=== PATIENT | female | born 1955 | race Caucasian/White ===

== ENCOUNTER 2017-11-04 15:29 | Observation (INO) | payer MEDICARE, OTHER ==
[~2017-11-04] VITALS: Ht 157.5 cm; Wt 53.7 kg
[~2017-11-04 15:29] MED LIST: CEFA2SOL IV; ERGO2000 PEG; ESCI20TA PEG; HYDR-3288 PO; HYOS0.1231 PO; LEVO100T5 PO; LORA-474 PEG; OMEP40CA2 PEG; OXYC-392 PEG; TRAZ50TA12 PO; XARE20TA PEG
[2017-11-04 15:40] VITALS: BP 123/71; PULSE 108; RESP 26; TEMP 98.1; O2SAT 96
--- NOTE | 2017-11-04 16:02 | PD ---
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) Immunizations Current: Yes Migraines: No Radiation Therapy: Yes Seizures: No Past Surgical History Abdominal Surgery: No Body Medical Devices: trach Cardiac Surgery: No Cholecystectomy: Yes Ear Surgery: No Endocrine Surgery: Yes (thyroidectomy 2015) Eye Surgery: No Genitourinary Surgery: No Gynecologic Surgery: No Hysterectomy: Yes Oral Surgery: No Thoracic Surgery: No Tonsillectomy: Yes Other Surgery: Yes (TRACH, VOICE BOX) Social History Alcohol Use: No Tobacco Use: No Substance Use: No Allergies-Medications (Allergen,Severity, Reaction): Coded Allergies: Penicillins (Verified Allergy, Severe, 07/03/17) pentazocine (Verified Allergy, Severe, 07/03/17) Reported Meds & Prescriptions Reported Meds & Active Scripts Active Hyosyne Liq Drops (Hyoscyamine Sulfate) 0.125 Mg/Ml Soln 0.125 Mg PO Q4H PRN 30 Days Trazodone (Trazodone HCl) 50 Mg Tab 50 Mg PO HS PRN 30 Days Escitalopram (Escitalopram Oxalate) 20 Mg Tab 20 Mg PEG HS 30 Days Xarelto (Rivaroxaban) 20 Mg Tab 20 Mg PEG DAILY 30 Days [place] (Hydrocodone-Acetaminophen) 7.5-325 mg Tab 1 Tab PO Q6H PRN Reported Levothyroxine (Levothyroxine Sodium) 100 Mcg Tab 100 Mcg PO DAILY Cefazolin Inj (Cefazolin Sodium/Dextrose) 2 Gm/50 Ml Bagp 2 Gm IV Q8H Ativan (Lorazepam) 1 Mg Tab 1 Mg PEG Q8H PRN Oxycodone (Oxycodone HCl) 5 Mg Tab 5 Mg PEG BID PRN Vitamin D2 (Ergocalciferol) 2,000 Unit Tab 5,000 Units PEG DAILY Omeprazole 40 Mg Cap 40 Mg PEG BID Data Data Orders Orders Complete Blood Count With Diff (11/04/17 15:47) Comprehensive Metabolic Panel (11/04/17 15:47) Thyroid Stimulating Hormone (11/04/17 15:47) Psych Screen (11/04/17 15:47) Drug Screen, Random Urine (11/04/17 15:47) Alcohol (Ethanol) (11/04/17 15:47) Salicylates (Aspirin) (11/04/17 15:47) Tylenol (Acetaminophen) (11/04/17 15:47) Urinalysis - C+S If Indicated (11/04/17 15:47) Erin Patiño November 04, 2017 16:02
[2017-11-04 16:57] LABS: AUTOMATED NEUTROPHIL # 9.2 TH/MM3 (1.8-7.7); BASOPHIL % 0.3 % (0.0-2.0); EOSINOPHIL # 0.1 TH/MM3 (0-0.4); EOSINOPHIL % 1.1 % (0.0-4.0); HEMATOCRIT 35.5 % (35.0-46.0); HEMOGLOBIN 11.9 GM/DL (11.6-15.3); LYMPH % 12.5 % (9.0-44.0); LYMPHOCYTE # 1.5 TH/MM3 (1.0-4.8); MEAN CELL VOLUME 80.9 FL (80.0-100.0); MEAN CORPUSCULAR HEMOGLOBIN 27.2 PG (27.0-34.0); MEAN CORPUSCULAR HGB CONC 33.6 % (32.0-36.0); MEAN PLATELET VOLUME 9.5 FL (7.0-11.0); MONO % 9.2 % (0.0-8.0); MONOCYTE # 1.1 TH/MM3 (0-0.9); NEUT % 76.9 % (16.0-70.0); PLATELET COUNT 309 TH/MM3 (150-450); RED BLOOD COUNT 4.38 MIL/MM3 (4.00-5.30); RED CELL DISTRIBUTION WIDTH 15.3 % (11.6-17.2)
[2017-11-04 17:00] LABS: BACTERIA, URINE RARE /hpf; BILIRUBIN, URINE NEG (NEG); BLOOD, URINE NEG (NEG); GLUCOSE,URINE NEG (NEG); KETONE, URINE NEG (NEG); NITRITE,URINE NEG (NEG); PH, URINE 6.5 (5.0-8.5); URINE COLOR COLORLESS (YELLW/STRAW); URINE LEUKOCYTE ESTERASE NEG (NEG)
[2017-11-04] MEDS ORDERED: ABIL10TA8 PEG (17:09)
[2017-11-04] MEDS ORDERED: LEVO88TA2 PEG (17:09)
[2017-11-04] MEDS ORDERED: CHOL5000 PEG (17:09)
[2017-11-04] MEDS ORDERED: HYDR50CA PEG (17:09)
[2017-11-04] MEDS ORDERED: LIDO1SOL8 TOPICAL (17:09)
[2017-11-04] MEDS ORDERED: PROZ20CA11 PEG (17:09)
[2017-11-04] MEDS ORDERED: LORA0.5T PEG (17:09)
[2017-11-04 17:27] LABS: ACETAMINOPHEN LESS THAN 2.0 MCG/ML (10.0-30.0); ALBUMIN 3.6 GM/DL (3.4-5.0); ALKALINE PHOSPHATASE 75 U/L (45-117); ALT (GPT) 35 U/L (10-53); AST (GOT) 15 U/L (15-37); BICARBONATE 17.7 MEQ/L (21.0-32.0); BLOOD UREA NITROGEN 20 MG/DL (7-18); CALCIUM 8.8 MG/DL (8.5-10.1); CHLORIDE 107 MEQ/L (98-107); CREATININE 1.19 MG/DL (0.50-1.00); GLOMERULAR FILTRATION RATE 46 ML/MIN (>89); GLUCOSE,RANDOM 87 MG/DL (74-106); SODIUM (NA) 142 MEQ/L (136-145); TOTAL BILIRUBIN ADULT 0.9 MG/DL (0.2-1.0); TOTAL PROTEIN 7.4 GM/DL (6.4-8.2)
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
[2017-11-04] MEDS ORDERED: LORazepam 2 MG/ML VIAL IM ONE (17:45)
[2017-11-04] MEDS ORDERED: SODIUM CHLOR 0.9% 1000 ML INJ 1,000 ML IV SCH (18:00)
[2017-11-04] MEDS ORDERED: HALOPERIDOL LACTATE 5 MG/ML AMP IM ONE (18:00)
[2017-11-04] MEDS ORDERED: SODIUM CHLORIDE 0.9% FLUSH 10 ML FLUSH IV FLUSH PRN (19:45)
[2017-11-04] MEDS ORDERED: MAGNESIUM HYDROXIDE SUSP 30 ML CUP PO PRN (19:45)
[2017-11-04] MEDS ORDERED: BISACODYL 10 MG SUPP RECTAL PRN (19:45)
[2017-11-04] MEDS ORDERED: SENNOSIDES 8.6 MG TAB PO PRN (19:45)
[2017-11-04] MEDS ORDERED: NALOXONE HCL 0.4 MG/ML AMP IV PUSH PRN (19:45)
[2017-11-04] MEDS ORDERED: LACTULOSE SYRUP 20 GM/30 ML CUP PO PRN (19:45)
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
[2017-11-04] MEDS ORDERED: ONDANSETRON ODT 4 MG TAB PO PRN (20:00)
[2017-11-04] MEDS ORDERED: ACETAMINOPHEN 650 MG/20.3 ML UDC G-TUBE PRN (20:00)
[2017-11-04] MEDS: DOCUSATE SODIUM 50 MG/SENNA 8.6 MG TAB PO SCH (21:00)
[2017-11-04 21:55] VITALS: BP 119/61; PULSE 73; RESP 20; TEMP 98.9; O2SAT 99
[2017-11-05] VITALS: BP 106/63; PULSE 104; RESP 18; TEMP 98.8; O2SAT 97
[2017-11-05] MEDS: LORazepam 2 MG/ML VIAL IV PUSH PRN ×3 (01:03→21:10)
[2017-11-05] MEDS: NS + KCL 20 MEQ INJ 1,000 ML IV SCH ×2 (01:06→15:53)
[2017-11-05] MEDS: SODIUM CHLORIDE 0.9% FLUSH 10 ML FLUSH IV FLUSH SCH ×3 (01:10→21:00)
[2017-11-05] MEDS ORDERED: LORazepam 2 MG/ML VIAL IV PUSH ONE (01:45)
[2017-11-05 04:00] VITALS: BP 100/59; PULSE 82; RESP 20; TEMP 98.1; O2SAT 100
[2017-11-05] MEDS: ACETAMINOPHEN/HYDROcodone 325 MG/7.5 MG TAB PO PRN ×3 (04:47→21:15)
[2017-11-05 07:26] LABS: AUTOMATED NEUTROPHIL # 6.5 TH/MM3 (1.8-7.7); BASOPHIL % 0.3 % (0.0-2.0); EOSINOPHIL # 0.1 TH/MM3 (0-0.4); EOSINOPHIL % 1.6 % (0.0-4.0); HEMATOCRIT 32.1 % (35.0-46.0); HEMOGLOBIN 10.8 GM/DL (11.6-15.3); LYMPH % 14.1 % (9.0-44.0); LYMPHOCYTE # 1.2 TH/MM3 (1.0-4.8); MEAN CELL VOLUME 81.7 FL (80.0-100.0); MEAN CORPUSCULAR HEMOGLOBIN 27.5 PG (27.0-34.0); MEAN CORPUSCULAR HGB CONC 33.6 % (32.0-36.0); MEAN PLATELET VOLUME 9.4 FL (7.0-11.0); MONO % 10.3 % (0.0-8.0); MONOCYTE # 0.9 TH/MM3 (0-0.9); NEUT % 73.7 % (16.0-70.0); PLATELET COUNT 265 TH/MM3 (150-450); RED BLOOD COUNT 3.93 MIL/MM3 (4.00-5.30); RED CELL DISTRIBUTION WIDTH 14.8 % (11.6-17.2); WHITE BLOOD COUNT 8.8 TH/MM3 (4.0-11.0)
[2017-11-05] MEDS: DOCUSATE SODIUM 50 MG/SENNA 8.6 MG TAB PO SCH ×2 (08:31→21:00)
[2017-11-05 08:37] LABS: BICARBONATE 22.2 MEQ/L (21.0-32.0); CREATININE 1.31 MG/DL (0.50-1.00)
[2017-11-05 12:11] VITALS: BP 109/62; PULSE 91; RESP 16; TEMP 98.1; O2SAT 97
[2017-11-05] MEDS ORDERED: HALOPERIDOL LACTATE 5 MG/ML AMP IM PRN (12:30)
[2017-11-05] MEDS ORDERED: traZODone HCL 50 MG TAB PO PRN (12:45)
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
[2017-11-05 16:00] VITALS: BP_SYST 103; BP_DIAS 57; BP_DIAS 72; PULSE 62; RESP 18; RESP 20; TEMP 98.4; O2SAT 95; O2SAT 96
[2017-11-05] MEDS ORDERED: HALO5P IM (16:44)
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
[2017-11-05] MEDS: [UNRECOGNIZED DRUG - REMARK] PEG SCH (17:34)
[2017-11-05] MEDS: CALCIUM CARBONATE 1.25 GM (CA 500 MG) TAB PEG SCH (17:34)
[2017-11-05] MEDS: POTASSIUM CHLORIDE 20 MEQ PWD PACKET PEG SCH (17:34)
[2017-11-05 20:00] VITALS: BP 109/66; PULSE 59; RESP 18; TEMP 97.9; O2SAT 96
[2017-11-05 21:58] VITALS: O2SAT 94
[2017-11-06] VITALS: BP 118/69; PULSE 72; RESP 22; TEMP 97.9; O2SAT 97
[2017-11-06] MEDS: LORazepam 2 MG/ML VIAL IV PUSH PRN ×2 (03:44→09:51)
[2017-11-06 04:00] VITALS: BP 93/63; PULSE 54; RESP 18; TEMP 97.6; O2SAT 95
[2017-11-06] MEDS: NS + KCL 20 MEQ INJ 1,000 ML IV SCH ×2 (05:55→14:39)
[2017-11-06] MEDS: [UNRECOGNIZED DRUG - REMARK] PEG SCH ×3 (05:55→12:00)
[2017-11-06] MEDS: ACETAMINOPHEN/HYDROcodone 325 MG/7.5 MG TAB PO PRN ×2 (06:46→14:00)
[2017-11-06 07:25] LABS: BICARBONATE 24.5 MEQ/L (21.0-32.0); CALCIUM 8.1 MG/DL (8.5-10.1); CREATININE 0.9 MG/DL (0.50-1.00)
[2017-11-06 08:00] VITALS: BP 93/55; PULSE 63; RESP 16; TEMP 97.8; O2SAT 93
[2017-11-06] MEDS: QUEtiapine FUMARATE 25 MG TAB PO SCH ×2 (08:54→12:42)
[2017-11-06] MEDS: DOCUSATE SODIUM 50 MG/SENNA 8.6 MG TAB PO SCH (08:54)
[2017-11-06] MEDS: CALCIUM CARBONATE 1.25 GM (CA 500 MG) TAB PEG SCH (08:54)
[2017-11-06] MEDS: SODIUM CHLORIDE 0.9% FLUSH 10 ML FLUSH IV FLUSH SCH (08:55)
[2017-11-06] MEDS: POTASSIUM CHLORIDE 20 MEQ PWD PACKET PEG SCH (08:55)
[2017-11-06] MEDS ORDERED: ARIPiprazole 5 MG TAB PEG SCH (09:00)
[2017-11-06] MEDS ORDERED: FLUoxetine HCL 20 MG CAP PO SCH (09:00)
[2017-11-06 12:00] VITALS: BP 95/60; PULSE 65; RESP 16; TEMP 97.9; O2SAT 93
[2017-11-06] MEDS ORDERED: LORazepam 1 MG TAB PEG ONE (14:45)
--- NOTE | 2017-11-06 17:50 | HHI.PR ---
Subjective Remarks Patient is in bed off restraints, giving staff difficulty with her behavior. Objective Vitals Vital Signs Date Time Temp Pulse Resp B/P (MAP) Pulse Ox O2 Delivery O2 Flow Rate FiO2 11/06/17 12:00 97.9 65 16 95/60 (72) 93 11/06/17 08:00 97.8 63 16 93/55 (68) 93 11/06/17 07:31 Room Air 11/06/17 04:00 97.6 54 18 93/63 (73) 95 11/06/17 00:00 97.9 72 22 118/69 (85) 97 11/05/17 21:58 94 21 11/05/17 20:00 97.9 59 18 109/66 (80) 96 11/05/17 20:00 Room Air I/O 11/05/17 11/05/17 11/05/17 11/06/17 11/06/17 11/06/17 06:59 14:59 22:59 06:59 14:59 22:59 Intake Total 0 ml 1000 ml Output Total 1200 ml Balance 0 ml -200 ml Intake Oral 0 ml 0 ml IV Total 1000 ml Output Urine Total 1200 ml # Voids 3 # Bowel Movements 0 Result Diagram: 11/05/17 0638 11/06/17 0636 Objective Remarks GENERAL: 62-year-old female in poor health secondary to throat cancer, tracheostomy SKIN: Warm and dry. HEAD: Normocephalic. EYES: No scleral icterus. No injection or drainage. NECK: Supple, trachea midline. No JVD or lymphadenopathy. CARDIOVASCULAR: Regular rate and rhythm without murmurs, gallops, or rubs. RESPIRATORY: Breath sounds equal bilaterally. No accessory muscle use. Tracheostomy in place GASTROINTESTINAL: Abdomen soft, non-tender, nondistended. PEG tube in place EXTREMITIES: No cyanosis, or edema. NEUROLOGICAL: Awake, alert, and oriented x 3. Non-focal. Procedures none A/P Problem List: (1) Suicidal ideation ICD Code: R45.851 - Suicidal ideations (2) Adjustment disorder with mixed disturbance of emotions and conduct ICD Code: F43.25 - Adjustment disorder with mixed disturbance of emotions and conduct (3) Major depressive disorder, recurrent ICD Code: F33.9 - Major depressive disorder, recurrent, unspecified (4) Medical clearance for psychiatric admission ICD Code: Z00.8 - Encounter for other general examination Status: Acute Assessment and Plan Suicidal ideation Patient was discharged yesterday and transferred to [facility] She is awaiting a bed for placement h/o throat cancer, tracheostomy, PEG tube Patient is an overall poor health, but medically stable, not qualifying for hospitalization from a medical standpoint Recommended that medicine follow her on [facility] for management of electrolyte imbalance and dehydration risk Discharge planning Patient awaiting placement into [facility] Naseem Olson MD Nov 06, 2017 17:50
--- NOTE | 2017-11-07 08:33 | EKG ---
Date Performed: 11/05/2017 Time Performed: 20:01:56 PTAGE: 62 years EKG: Sinus rhythm Poor R-wave progression across the precordium which may be a normal variant Low voltage in precordia l leads NO PREVIOUS TRACING DOCTOR: Cal Guzman Interpretating Date/Time 11/07/2017 08:31:10
== END 2017-11-06 16:12 ==
LOC: NEPD 15:29 → NEDA 17:56 → N04A 21:55
PROVIDERS: ADMIT Family Medicine; ATTEND Family Medicine
DX: F43.25 Adjustment disorder with mixed disturbance of emotions and conduct (principal); F33.9 Major depressive disorder, recurrent, unspecified; F41.9 Anxiety disorder, unspecified; R45.1 Restlessness and agitation; K21.9 Gastro-esophageal reflux disease without esophagitis; E03.9 Hypothyroidism, unspecified; E87.6 Hypokalemia; Z93.1 Gastrostomy status; Z85.12 Personal history of malignant neoplasm of trachea; Z78.1 Physical restraint status; Z79.01 Long term (current) use of anticoagulants; Z93.0 Tracheostomy status; Z79.899 Other long term (current) drug therapy
CPT/HCPCS: 80048; 80053; 80307; 81001; 84443; 85025; 93005; 96365; 96366; 96372; 96375; 96376; 99285; G0378; J2060; J3480

== ENCOUNTER 2017-11-06 14:10 | Inpatient (IN) | payer MEDICARE, OTHER ==
[~2017-11-06 14:10] MED LIST changes: +ABIL10TA8 PEG; -CEFA2SOL IV; +CHOL5000 PEG; -ERGO2000 PEG; -ESCI20TA PEG; +HALO5P IM; -HYDR-3288 PO; +HYDR50CA PEG; -LEVO100T5 PO; +LEVO88TA2 PEG; +LIDO1SOL8 TOPICAL; -LORA-474 PEG; +LORA0.5T PEG; -OXYC-392 PEG; +PROZ20CA11 PEG; -XARE20TA PEG
[2017-11-06 18:12] VITALS: BP 140/73; PULSE 74; RESP 17; TEMP 98.6; O2SAT 100
[2017-11-06] MEDS ORDERED: LIDOCAINE VISCOUS 2% SOLN 15 ML UDC SWISH-SPIT PRN (18:45)
[2017-11-06] MEDS: LANSOPRAZOLE SOLUTAB 30 MG TAB PEG SCH (20:46)
[2017-11-06] MEDS: HYOSCYAMINE SOLN 0.125 MG/ML 15 ML BTL PO PRN (20:46)
[2017-11-06] MEDS: LORazepam 0.5 MG TAB PEG PRN (20:47)
[2017-11-06] MEDS ORDERED: NON-FORMULARY DRUG (Omeprazole 40 MG) PEG SCH (21:00)
[2017-11-07] MEDS: LEVOTHYROXINE SODIUM 88 MCG TAB PEG SCH (06:00)
[2017-11-07] MEDS: LANSOPRAZOLE SOLUTAB 30 MG TAB PEG SCH ×2 (09:58→19:27)
[2017-11-07] MEDS: CHOLECALCIFEROL (VIT D3) 5000 UNIT CAP PEG SCH (09:58)
[2017-11-07] MEDS: LORazepam 0.5 MG TAB PEG PRN ×4 (09:58→22:11)
[2017-11-07] MEDS: HYOSCYAMINE SOLN 0.125 MG/ML 15 ML BTL PO PRN ×4 (09:58→19:27)
[2017-11-07] MEDS ORDERED: traZODone HCL 50 MG TAB PO PRN (10:00)
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
[2017-11-07] MEDS: HALOPERIDOL LACTATE 5 MG/ML AMP IM PRN ×2 (12:35→20:39)
[2017-11-07] MEDS: ARIPiprazole 5 MG TAB PEG SCH (13:53)
[2017-11-07] MEDS: FLUoxetine HCL 20 MG CAP PO SCH (13:53)
--- NOTE | 2017-11-07 15:43 | PD.CONS ---
HPI Service [facility] [address] Hospitalists Consult Requested By Dr. Le Reason for Consult Medical management Primary Care Physician Unknown Diagnoses: (1) Hypokalemia (2) History of throat cancer (3) Acute kidney injury (4) Suicidal ideation (5) Adjustment disorder with mixed disturbance of emotions and conduct (6) Major depressive disorder, recurrent History of Present Illness The patient is a 62 year old female admitted to the medical/psych unit. Hospitalist consultation was requested for medical management. She had been admitted to the medical service for management of dehydration and electrolyte abnormalities prior to transfer to [facility]/psych. She has no complaints at this time. Denies chest pain, dyspnea, nausea, vomiting. Per nursing, she was quite agitated this morning, but has done well after receiving her psych medications. Review of Systems Constitutional: DENIES: Fever, Chills, Night Sweats Eyes: DENIES: Blurred vision, Vision loss Ears, nose, mouth, throat: DENIES: Hearing loss Respiratory: DENIES: Cough, Wheezing, Sputum production, Shortness of breath Cardiovascular: DENIES: Chest pain, Palpitations, Dyspnea on Exertion, Lower Extremity Edema Gastrointestinal: DENIES: Abdominal pain, Constipation, Diarrhea, Nausea, Vomiting Genitourinary: DENIES: Urinary frequency, Urinary incontinence, Urgency, Hematuria, Dysuria, Nocturia Musculoskeletal: DENIES: Joint pain, Muscle aches Integumentary: DENIES: Pruritus, Rash Hematologic/lymphatic: DENIES: Bruising Neurologic: DENIES: Headache Past Family Social History Allergies: Coded Allergies: Penicillins (Verified Allergy, Severe, 11/04/17) pentazocine (Verified Allergy, Severe, 11/04/17) Past Medical History History of throat cancer Adjustment disorder Hypothyroidism GERD Past Surgical History Tracheostomy PEG tube Reported Medications See list Family History Denies significant family medical history. Social History Patient denies alcohol, tobacco, and illicit drug use. Physical Exam Vital Signs Vital Signs Date Time Temp Pulse Resp B/P (MAP) Pulse Ox O2 Delivery O2 Flow Rate FiO2 11/06/17 18:12 98.6 74 17 140/73 (95) 100 Physical Exam GENERAL: Chronically ill-appearing female in no acute distress. HEENT: Tracheostomy. CARDIOVASCULAR: Regular rate and rhythm without murmurs, gallops, or rubs. RESPIRATORY: Clear to auscultation. No wheezes, rales, or rhonchi. Breathing is non-labored. GASTROINTESTINAL: Abdomen soft, non-tender, nondistended. PEG tube in place. EXTREMITIES: No lower extremity edema. No calf tenderness. PSYCH: Alert and oriented x 3. Assessment and Plan Assessment and Plan 1. Suicidal ideation, depression: Admitted under Joy Act. Management per psychiatry. 2. Hypokalemia: Improved. Recheck labs. 3. Acute kidney injury: Secondary to dehydration. Improved with IV fluids. Recheck BUN and creatinine. 4. History of throat cancer: Patient has tracheostomy and PEG tube. Continue bolus tube feedings. Appreciate dietary recommendations. 5. DVT prophylaxis: Ambulation. 6. Hypothyroidism: Continue Synthroid. 7. GI prophylaxis: Prevacid. Ziggy Stahl MD Nov 07, 2017 15:43
[2017-11-07 17:38] VITALS: BP 119/57; PULSE 57; RESP 16; TEMP 98.9; O2SAT 98
[2017-11-07] MEDS: ACETAMINOPHEN/HYDROcodone 325 MG/5 MG TAB PEG PRN (19:27)
[2017-11-07 22:02] LABS: AUTOMATED NEUTROPHIL # 4.5 TH/MM3 (1.8-7.7); BASOPHIL % 0.7 % (0.0-2.0); EOSINOPHIL # 0.1 TH/MM3 (0-0.4); HEMATOCRIT 30.7 % (35.0-46.0); HEMOGLOBIN 10.3 GM/DL (11.6-15.3); LYMPH % 17.4 % (9.0-44.0); LYMPHOCYTE # 1.1 TH/MM3 (1.0-4.8); MEAN CELL VOLUME 81.2 FL (80.0-100.0); MEAN CORPUSCULAR HEMOGLOBIN 27.3 PG (27.0-34.0); MEAN CORPUSCULAR HGB CONC 33.7 % (32.0-36.0); MEAN PLATELET VOLUME 9.1 FL (7.0-11.0); MONO % 9.9 % (0.0-8.0); MONOCYTE # 0.6 TH/MM3 (0-0.9); PLATELET COUNT 204 TH/MM3 (150-450); RED BLOOD COUNT 3.78 MIL/MM3 (4.00-5.30); WHITE BLOOD COUNT 6.4 TH/MM3 (4.0-11.0)
[2017-11-07 22:26] LABS: BICARBONATE 21.3 MEQ/L (21.0-32.0); CALCIUM 8.8 MG/DL (8.5-10.1); CREATININE 1.19 MG/DL (0.50-1.00)
[2017-11-08] MEDS: ACETAMINOPHEN/HYDROcodone 325 MG/5 MG TAB PEG PRN ×3 (03:46→17:59)
[2017-11-08] MEDS: LORazepam 0.5 MG TAB PEG PRN ×3 (03:46→17:59)
[2017-11-08] MEDS: LEVOTHYROXINE SODIUM 88 MCG TAB PEG SCH (05:32)
[2017-11-08 06:09] VITALS: BP 91/55; PULSE 98; RESP 17; TEMP 97.4; O2SAT 95
[2017-11-08] MEDS ORDERED: POTASSIUM CHLORIDE 25 MEQ EFFERVESCENT TAB PEG ONE (07:30)
[2017-11-08 10:15] LABS: AUTOMATED NEUTROPHIL # 2.7 TH/MM3 (1.8-7.7); BASOPHIL % 0.9 % (0.0-2.0); EOSINOPHIL # 0.2 TH/MM3 (0-0.4); EOSINOPHIL % 3.5 % (0.0-4.0); HEMATOCRIT 29.8 % (35.0-46.0); LYMPH % 18.9 % (9.0-44.0); LYMPHOCYTE # 0.8 TH/MM3 (1.0-4.8); MEAN CELL VOLUME 82.2 FL (80.0-100.0); MEAN CORPUSCULAR HEMOGLOBIN 27.6 PG (27.0-34.0); MEAN CORPUSCULAR HGB CONC 33.6 % (32.0-36.0); MONO % 13.5 % (0.0-8.0); MONOCYTE # 0.6 TH/MM3 (0-0.9); NEUT % 63.2 % (16.0-70.0); PLATELET COUNT 193 TH/MM3 (150-450); RED BLOOD COUNT 3.62 MIL/MM3 (4.00-5.30); RED CELL DISTRIBUTION WIDTH 15.1 % (11.6-17.2); WHITE BLOOD COUNT 4.3 TH/MM3 (4.0-11.0)
--- NOTE | 2017-11-08 10:18 | PD.TTN ---
Patient Problems 1. Discharge planning 2. Medication compliance 3. Knowledge deficit 4. Lack of coping skills Progress Toward Goals Provider Present: Dr. Lloyd Justice Provider Input: new patient Psych Therapist Input: pedro; new patient Group Spec/RT/OT/SMALL Present: ANDRÉS Cason Spec/RT/OT/SMALL Input: new patient; pt has reported that she was in hospital for several days on medical floor, pt reports she has been attending groups Documentation Scribe: cooper sepulveda ms, otr Cooper Sepulveda Nov 08, 2017 10:18
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
[2017-11-08] MEDS: ARIPiprazole 5 MG TAB PEG SCH (11:01)
[2017-11-08] MEDS: LANSOPRAZOLE SOLUTAB 30 MG TAB PEG SCH ×2 (11:02→21:00)
[2017-11-08] MEDS: FLUoxetine HCL 20 MG CAP PO SCH (11:02)
[2017-11-08] MEDS: CHOLECALCIFEROL (VIT D3) 5000 UNIT CAP PEG SCH (11:02)
[2017-11-08 11:04] LABS: BICARBONATE 21.8 MEQ/L (21.0-32.0); CALCIUM 8.9 MG/DL (8.5-10.1); CREATININE 1.1 MG/DL (0.50-1.00)
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
--- NOTE | 2017-11-08 17:40 | HHI.PR ---
Subjective Remarks Follow-up for dehydration, electrolyte disturbances. Patient is seen resting in bed. She has no medical complaints. Denies any fever/chills, headache, lightheadedness, chest pain, palpitations, shortness of breath, abdominal pain, nausea/vomiting, or diarrhea. States she wants to go home. Discussed with RN, no acute concerns. Objective Vitals Vital Signs Date Time Temp Pulse Resp B/P (MAP) Pulse Ox O2 Delivery O2 Flow Rate FiO2 11/08/17 06:09 97.4 98 17 91/55 (67) 95 11/08/17 04:46 20 11/07/17 17:38 98.9 57 16 119/57 (77) 98 I/O 11/07/17 11/07/17 11/07/17 11/08/17 11/08/17 11/08/17 07:00 15:00 23:00 07:00 15:00 23:00 Intake Total 480 ml Balance 480 ml Tube Feeding 480 ml # Voids 2 1 # Bowel Movements 1 Result Diagram: 11/08/1793211/[id number]/17932 Objective Remarks GENERAL: Well-nourished, well-developed female patient in [facility]. SKIN: Warm and dry. No rash. HEENT: Normocephalic. Atraumatic. Pupils equal and round. Mucous membranes pink and moist. NECK: Supple. Tracheostomy. CARDIOVASCULAR: Regular rate and rhythm. No murmur appreciated. RESPIRATORY: No accessory muscle use. Clear to auscultation. Breath sounds equal bilaterally. GASTROINTESTINAL: Abdomen soft, non-tender, nondistended. Normoactive bowel sounds x4. PEG tube in place. MUSCULOSKELETAL: No obvious deformities. Extremities without clubbing, cyanosis , or edema. NEUROLOGICAL: Awake and alert. No obvious cranial nerve deficits. Moving all extremities spontaneously. Medications and IVs Current Medications Medications (Trade) Dose Ordered Sig/Edmond Route Start Time Stop Time Status Last Admin (Vitamin D3) 5,000 units DAILY PEG 11/07/17 09:00 11/08/17 11:02 (Vistaril) 150 mg HS PEG 11/06/17 21:00 11/07/17 19:27 (Levsin Liq) 0.125 mg Q4H PRN PO 11/06/17 18:45 11/07/17 19:27 (Synthroid) 88 mcg DAILY@0600 PEG 11/07/17 06:00 11/08/17 05:32 (Xylocaine 2% Viscous) 5 ml QID PRN SWISH-SPIT 11/06/17 18:45 (Ativan) 0.5 mg 5 TIMES A DAY PRN PEG 11/06/17 18:45 11/08/17 11:28 (Prevacid Odt) 30 mg BID PEG 11/06/17 21:00 11/08/17 11:02 (Abilify) 5 mg DAILY PEG 11/07/17 10:30 Future hold 11/08/17 11:01 (PROzac) 40 mg DAILY PO 11/07/17 10:30 Future hold 11/08/17 11:02 (Haldol Inj) 2 mg Q8H PRN IM 11/07/17 10:00 Future hold 11/07/17 20:39 (Desyrel) 50 mg HS PRN PO 11/07/17 10:00 Future hold ([place] 5-325 Mg) 1 tab Q6H PRN PEG 11/07/17 18:30 11/08/17 11:28 (KCl Powder) 20 meq DAILY PEG 11/09/17 09:00 A/P Problem List: (1) Hypokalemia ICD Code: E87.6 - Hypokalemia (2) History of throat cancer ICD Code: Z85.819 - Personal history of malignant neoplasm of unspecified site of lip, oral cavity, and pharynx (3) Acute kidney injury ICD Code: N17.9 - Acute kidney failure, unspecified (4) Suicidal ideation ICD Code: R45.851 - Suicidal ideations (5) Adjustment disorder with mixed disturbance of emotions and conduct ICD Code: F43.25 - Adjustment disorder with mixed disturbance of emotions and conduct (6) Major depressive disorder, recurrent ICD Code: F33.9 - Major depressive disorder, recurrent, unspecified Assessment and Plan 8-year-old female with history of throat cancer with tracheostomy/PEG, adjustment disorder, hypothyroidism, GERD, admitted to med psych for depression and suicidal ideations. Hospitalist consulted for management of dehydration and electrolyte abnormalities. Depression, suicidal ideation: Acute. Admitted under Joy act. -Continue management per psychiatry -Continue on Prozac, Abilify JEFF: Creatinine 1.19, previously 0.6 in June 2017. Suspect secondary to dehydration. -Continue hydration via PEG -Repeat BMP shows some improvement, creatinine 1.1 -Avoid nephrotoxins -Continue to monitor Hypokalemia: Potassium 3.1 -Given p.o. KCl replacement -Repeat labs show improvement, K 3.8 History of throat cancer: Has tracheostomy and PEG tube -Continue tube feedings -Consulted dietitian, appreciate recommendations Hypothyroidism: chronic -Continue synthroid GERD: chronic -Continue Prevacid DVT Prophylaxis: ambulation Nanda Yanez PA-C Nov 08, 2017 5:40 pm
[2017-11-08 18:00] VITALS: BP 96/53; PULSE 64; RESP 17; TEMP 97.8; O2SAT 94
[2017-11-09 06:00] VITALS: BP 98/50; PULSE 51; RESP 15; TEMP 97.4; O2SAT 93
[2017-11-09] MEDS: LEVOTHYROXINE SODIUM 88 MCG TAB PEG SCH (06:00)
[2017-11-09 07:51] LABS: BICARBONATE 23.9 MEQ/L (21.0-32.0); CREATININE 1.04 MG/DL (0.50-1.00)
--- NOTE | 2017-11-09 09:26 | HHI.PR ---
Subjective Remarks Follow up on patient with dehydration, electrolyte imbalance. Patient seen and examined. Patient denies any new complaints. She denies any fever or chills. + cough with yellowish sputum production. Denies any chest pain or shortness of breath. Denies any N/V or abdominal pain. Denies any urinary complaints, diarrhea or constipation. Afebrile. BP low 98/50 but patient is asymptomatic. Objective Vitals Vital Signs Date Time Temp Pulse Resp B/P (MAP) Pulse Ox O2 Delivery O2 Flow Rate FiO2 11/09/17 06:00 97.4 51 15 98/50 (66) 93 11/08/17 18:00 97.8 64 17 96/53 (67) 94 I/O 11/08/17 11/08/17 11/08/17 11/09/17 11/09/17 11/09/17 07:00 15:00 23:00 07:00 15:00 23:00 Intake Total 480 ml 480 ml Balance 480 ml 480 ml Intake Oral 480 ml Tube Feeding 480 ml # Voids 1 1 Result Diagram: 11/08/17 0933 11/09/17 0659 Objective Remarks GENERAL: Well-nourished, well-developed female patient in NAD. Awake and alert. SKIN: Warm and dry. No rash. HEENT: Normocephalic. Atraumatic. Pupils equal and round. Mucous membranes pink and moist. NECK: Supple. Tracheostomy with yellowish secretions noted. CARDIOVASCULAR: Regular rate and rhythm. No murmur appreciated. RESPIRATORY: Nonlabored. Coarse BS. Breath sounds equal bilaterally. GASTROINTESTINAL: Abdomen soft, non-tender, nondistended. Normoactive bowel sounds x4. PEG tube in place. MUSCULOSKELETAL: No obvious deformities. Extremities without clubbing, cyanosis , or edema. NEUROLOGICAL: Awake and alert. No obvious cranial nerve deficits. Moving all extremities spontaneously. PSYCHIATRIC: Calm and cooperative with examination. A/P Problem List: (1) Hypokalemia ICD Code: E87.6 - Hypokalemia (2) History of throat cancer ICD Code: Z85.819 - Personal history of malignant neoplasm of unspecified site of lip, oral cavity, and pharynx (3) Acute kidney injury ICD Code: N17.9 - Acute kidney failure, unspecified (4) Suicidal ideation ICD Code: R45.851 - Suicidal ideations (5) Adjustment disorder with mixed disturbance of emotions and conduct ICD Code: F43.25 - Adjustment disorder with mixed disturbance of emotions and conduct (6) Major depressive disorder, recurrent ICD Code: F33.9 - Major depressive disorder, recurrent, unspecified Assessment and Plan 62-year-old female with history of throat cancer with tracheostomy/PEG, adjustment disorder, hypothyroidism, GERD, admitted to med psych for depression and suicidal ideations. Hospitalist consulted for management of dehydration and electrolyte abnormalities. Depression, suicidal ideation: Acute. Admitted under Joy act. -Continue management per psychiatry -Continue on Prozac, Abilify Hypotension, asymptomatic, suspect secondary to dehydration Patient not on any antihypertensive medications -Give small IVF bolus -check BP manually and record in EMR -fall precautions -monitor BP Bradycardia, asymptomatic HR 51 -check TSH level -obtain EKG -monitor HR Thick secretions Cough s/p tracheostomy O2 sats 93% on RA -obtain CXR -Duonebs -monitor respiratory status JEFF: Creatinine 1.19, previously 0.6 in June 2017. Suspect secondary to dehydration. -Continue hydration via PEG -Repeat BMP shows some improvement, creatinine 1.04 -Avoid nephrotoxins -Continue to monitor Hypokalemia: Potassium 3.1 Resolved s/p po repletion -repeat potassium level as indicated History of throat cancer: Has tracheostomy and PEG tube -Continue tube feedings per dietary recommendations Hypothyroidism: chronic -Continue synthroid GERD: chronic -Continue Prevacid DVT Prophylaxis: ambulation Inna Silva Nov 09, 2017 09:26
[2017-11-09] MEDS ORDERED: SODIUM CHLORID 0.9% 500 ML INJ 500 ML IV ONE (09:30)
[2017-11-09] MEDS: FLUoxetine HCL 20 MG CAP PO SCH (09:52)
[2017-11-09] MEDS: LANSOPRAZOLE SOLUTAB 30 MG TAB PEG SCH ×2 (09:52→21:00)
[2017-11-09] MEDS: POTASSIUM CHLORIDE 20 MEQ PWD PACKET PEG SCH (09:52)
[2017-11-09] MEDS: ACETAMINOPHEN/HYDROcodone 325 MG/5 MG TAB PEG PRN ×4 (09:53→23:40)
[2017-11-09] MEDS: CHOLECALCIFEROL (VIT D3) 5000 UNIT CAP PEG SCH (09:53)
[2017-11-09] MEDS: LORazepam 0.5 MG TAB PEG PRN ×4 (09:53→21:13)
[2017-11-09] MEDS: ARIPiprazole 5 MG TAB PEG SCH (09:53)
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
--- NOTE | 2017-11-09 11:27 | RADRPT ---
EXAM DATE: 11/09/2017 10:24 AM EDT AGE/SEX: 62 years / Female INDICATIONS: Shortness of breath and cough. CLINICAL DATA: This is the patient's initial encounter. Patient reports that signs and symptoms have been present for 1 day and indicates a pain score of 0/10. MEDICAL/SURGICAL HISTORY: None. None. COMPARISON: No prior [facility] exams available for comparison. FINDINGS: A single AP view of the chest demonstrates the lungs to be symmetrically aerated without evidence of mass, infiltrate or effusion. The cardiomediastinal contours are unremarkable. Osseous structures a re intact. Right subclavian [id number] catheter in excellent position CONCLUSION: Lungs are grossly clear. Dinilo-a-[id number] in good position. Previous left neck surgery Electronically signed by: Luis Armando Lomax MD 11/09/2017 11:26 AM EDT
[2017-11-09] MEDS: RESP: ALBUTEROL 2.5 MG/IPRATROPIUM 0.5 MG NEB (SCH) NEB ×4 (12:00→20:28)
[2017-11-09] MEDS: HYOSCYAMINE SOLN 0.125 MG/ML 15 ML BTL PO PRN ×2 (12:32→18:34)
--- NOTE | 2017-11-09 15:56 | EKG ---
Date Performed: 11/09/2017 Time Performed: 11:34:25 PTAGE: 62 years EKG: Sinus rhythm POSSIBLE ANTERIOR MYOCARDIAL INFARCTION , PROBABLY OLD BORDERLINE ECG Since the PREVIOUS TRACING , no significant change noted PREVIOUS TRACIN11/05/2017 20.01 DOCTOR: Elaine Champion Interpretating Date/Time 11/09/2017 15:56:05
[2017-11-09 22:34] VITALS: BP 121/59; PULSE 69; RESP 16; TEMP 98; O2SAT 97
[2017-11-10] MEDS: LORazepam 0.5 MG TAB PEG PRN ×2 (04:07→08:56)
[2017-11-10] MEDS: ACETAMINOPHEN/HYDROcodone 325 MG/5 MG TAB PEG PRN ×2 (05:00→11:02)
[2017-11-10 05:42] VITALS: BP 94/55; PULSE 64; RESP 16; TEMP 98.9; O2SAT 96
[2017-11-10] MEDS: LEVOTHYROXINE SODIUM 88 MCG TAB PEG SCH (06:00)
[2017-11-10] MEDS: RESP: ALBUTEROL 2.5 MG/IPRATROPIUM 0.5 MG NEB (SCH) NEB (07:52)
--- NOTE | 2017-11-10 08:09 | HHI.PR ---
Subjective Remarks Follow up on patient with dehydration, electrolyte imbalance. Patient seen and examined. Patient is asking if she can go home. She states she takes 20mg Xarelto daily for hx of DVT. She denies any complaints of fever or chills. She denies any chest pain or dyspnea. States her secretions are better. She denies any nausea, vomiting or abdominal pain. She denies any urinary difficulties, diarrhea or constipation. Objective Vitals Vital Signs Date Time Temp Pulse Resp B/P (MAP) Pulse Ox O2 Delivery O2 Flow Rate FiO2 11/10/17 05:42 98.9 64 16 94/55 (68) 96 11/09/17 22:34 98.0 69 16 121/59 (79) 97 I/O 11/09/17 11/09/17 11/09/17 11/10/17 11/10/17 11/10/17 07:00 15:00 23:00 07:00 15:00 23:00 Intake Total 480 ml 1200 ml 400 ml Balance 480 ml 1200 ml 400 ml Intake Oral 480 ml 1200 ml Tube Feeding 400 ml # Voids 1 1 1 Result Diagram: 11/08/17 0933 11/09/17 0659 Imaging Last Impressions Chest X-Ray 11/09/17 0000 Signed Impressions: CONCLUSION: Lungs are grossly clear. [id number]-y-Pjtn in good position. Previous left neck jodie julia Objective Remarks GENERAL: Well-nourished, well-developed female patient in NAD. Awake and alert. Appears comfortable. SKIN: Warm and dry. No rash. HEENT: Normocephalic. Atraumatic. Pupils equal and round. Mucous membranes pink and moist. NECK: Supple. Tracheostomy with yellowish secretions noted. CARDIOVASCULAR: Regular rate and rhythm. No murmur appreciated. RESPIRATORY: Nonlabored. Good air entry. Breath sounds equal bilaterally. GASTROINTESTINAL: Abdomen soft, non-tender, nondistended. Normoactive bowel sounds x4. PEG tube in place. MUSCULOSKELETAL: No obvious deformities. Extremities without clubbing, cyanosis , or edema. NEUROLOGICAL: Awake and alert. No obvious cranial nerve deficits. Moving all extremities spontaneously. PSYCHIATRIC: Calm and cooperative with examination. Procedures None A/P Problem List: (1) Hypokalemia ICD Code: E87.6 - Hypokalemia (2) History of throat cancer ICD Code: Z85.819 - Personal history of malignant neoplasm of unspecified site of lip, oral cavity, and pharynx (3) Acute kidney injury ICD Code: N17.9 - Acute kidney failure, unspecified (4) Suicidal ideation ICD Code: R45.851 - Suicidal ideations (5) Adjustment disorder with mixed disturbance of emotions and conduct ICD Code: F43.25 - Adjustment disorder with mixed disturbance of emotions and conduct (6) Major depressive disorder, recurrent ICD Code: F33.9 - Major depressive disorder, recurrent, unspecified Assessment and Plan 62-year-old female with history of throat cancer with tracheostomy/PEG, adjustment disorder, hypothyroidism, GERD, admitted to med psych for depression and suicidal ideations. Hospitalist consulted for management of dehydration and electrolyte abnormalities. Depression, suicidal ideation: Acute. Admitted under Joy act. -Continue management per psychiatry -Continue on Prozac, Abilify Hypotension, asymptomatic, suspect secondary to dehydration Patient not on any antihypertensive medications -improved some after IVF bolus -check orthostatic BP measurements -fall precautions -monitor BP Bradycardia, asymptomatic HR 51 EKG shows sinus rhythm, HR 70 -monitor HR Thick secretions Cough s/p tracheostomy O2 sats 93% on RA CXR shows grossly clear lungs, images reviewed by me Dash scheduled -monitor respiratory status -continue Levsin prn JEFF: Creatinine 1.19, previously 0.6 in June 2017. Suspect secondary to dehydration. -Continue hydration via PEG -Repeat BMP shows some improvement, creatinine 1.04 -Avoid nephrotoxins -Continue to monitor Hypokalemia: Potassium 3.1 Resolved s/p po repletion -started on potassium 20meq daily this admission, would not continue at discharge but have patient follow up with PCP as outpatient -repeat potassium level as indicated History of throat cancer: Has tracheostomy and PEG tube -Continue tube feedings per dietary recommendations Hx of DVT -resume on home dose of Xarelto 20mg daily Hypothyroidism: chronic -Continue synthroid GERD: chronic -Continue Prevacid DVT Prophylaxis: ambulation Inna Silva Nov 10, 2017 08:09
[2017-11-10] MEDS: POTASSIUM CHLORIDE 20 MEQ PWD PACKET PEG SCH (08:55)
[2017-11-10] MEDS: ARIPiprazole 5 MG TAB PEG SCH (08:55)
[2017-11-10] MEDS: CHOLECALCIFEROL (VIT D3) 5000 UNIT CAP PEG SCH (08:56)
[2017-11-10] MEDS: FLUoxetine HCL 20 MG CAP PO SCH (08:56)
[2017-11-10] MEDS: HYOSCYAMINE SOLN 0.125 MG/ML 15 ML BTL PO PRN (08:56)
[2017-11-10] MEDS: LANSOPRAZOLE SOLUTAB 30 MG TAB PEG SCH (08:56)
[2017-11-10] MEDS ORDERED: RIVAROXABAN 20 MG TAB PO SCH (09:00)
[2017-11-10] MEDS ORDERED: XARE20TA PO (11:20)
[2017-11-10] MEDS ORDERED: LEVO88TA2 PEG (11:20)
[2017-11-10] MEDS ORDERED: POTA10PO PEG (11:20)
[2017-11-10] MEDS ORDERED: HYDR50CA PEG (11:20)
[2017-11-10] MEDS ORDERED: CHOL5000 PEG (11:20)
[2017-11-10] MEDS ORDERED: PREV30TA3 PEG (11:20)
[2017-11-10] MEDS ORDERED: PROZ20CA11 PEG (11:20)
[2017-11-10] MEDS ORDERED: Albuterol-Ipratropium Neb NEB (11:20)
[2017-11-10] MEDS ORDERED: ARIP1TAB11 PEG (11:20)
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
== END 2017-11-10 12:35 | disposition home or self-care (01) | DRG 882 ==
LOC: H4EA 16:15
PROVIDERS: ADMIT Student in an Organized Health Care Education/Training Program; ATTEND Student in an Organized Health Care Education/Training Program
DX: F43.25 Adjustment disorder with mixed disturbance of emotions and conduct (principal); R45.851 Suicidal ideations; F33.9 Major depressive disorder, recurrent, unspecified; N17.9 Acute kidney failure, unspecified; Z93.0 Tracheostomy status; I95.9 Hypotension, unspecified; E86.0 Dehydration; E87.6 Hypokalemia; K21.9 Gastro-esophageal reflux disease without esophagitis; R00.1 Bradycardia, unspecified; R05 Cough; E03.9 Hypothyroidism, unspecified; F41.9 Anxiety disorder, unspecified; Y09 Assault by unspecified means; Z79.01 Long term (current) use of anticoagulants; Z85.819 Personal history of malignant neoplasm of unspecified site of lip, oral cavity, and pharynx; Z86.718 Personal history of other venous thrombosis and embolism; Z88.6 Allergy status to analgesic agent; Z88.0 Allergy status to penicillin
CPT/HCPCS: 71045; 80048; 83735; 84439; 84443; 84480; 85025; 93005; 94640; 94664; J1630